=== PATIENT | male | born 1980 | race African-American/Black ===

== ENCOUNTER 2018-01-03 13:32 | Emergency (ER) | payer MEDICAID ==
[2018-01-03 13:42] VITALS: BP 135/77; BMI 25.9
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
== END 2018-01-03 15:50 | disposition home or self-care (01) ==
LOC: ER 13:52
DX: M54.2 Cervicalgia (principal)
CPT/HCPCS: 99281; 99283